=== PATIENT | male | born 1955 | race Caucasian/White ===

== ENCOUNTER 2024-05-20 09:31 | Inpatient (IN) | payer MEDICARE ==
[~2024-05-20] VITALS: Ht 177.8 cm; Wt 95.3 kg
[~2024-05-20 09:31] MED LIST: ARICEPT10 M1 PO; ASPIRIN ADULT L81 M1 PO; BISACODYL10 MG R; BRILINTA60 MG PO; DEPAKOTE250 MG PO; FLOMAX0.4 MG PO; HUMALOG TE100 UNIT/1 SC; LANTUS SOL100 UNIT/1 SC; LEVOTHYROXINE50 MC1 PO; LISINOPRIL5 MG PO; LOPRESSOR25 MG PO; LORazepam 1 MG TAB PO PRN; LORazepam 2 MG/ML VIAL IM PRN; MEMANTINE HCL5 MG PO; METFORMIN HYD1000 MG PO; MILK OF MA400 MG/53 PO; Memantine Hydrochloride 5 MG TAB PO SCH; NATURE'S BLEND F1 MG PO; NEURONTIN600 MG PO; NORVASC5 MG PO; OMEPRAZOLE MAGN20 M2 PO; Rivastigmine Tartrate 4.6 MG/24 HR PATCH T SCH; SIMVASTATIN20 MG PO; TAGAMET HB200 M1 PO; TYLENOL325 M1 PO; VITAMIN B150 MG PO; ZOLOFT50 MG PO; Ziprasidone Mesylate 20 MG VIAL IM PRN
[2024-05-20 09:45] VITALS: BP 112/77
[2024-05-20] MEDS ORDERED: Magnesium Hydroxide 30 ML UDC PO PRN (12:05)
[2024-05-20] MEDS ORDERED: MG-AL HYDROXIDE/SIMETICONE 30 ML UDC PO PRN (12:05)
[2024-05-20] MEDS ORDERED: ACETAMINOPHEN 325 MG TAB PO PRN (12:05)
[2024-05-20] MEDS ORDERED: DEXTROSE 10 % IN WATER 250 ML IV PRN (15:40)
[2024-05-20] MEDS ORDERED: INSULIN LISPRO 1 UNIT/0.01 ML SQ SCH (16:30)
[2024-05-20 20:00] VITALS: BP 122/68
[2024-05-20] MEDS ORDERED: CIMETIDINE 200 MG TAB PO SCH (21:00)
[2024-05-20] MEDS ORDERED: GABAPENTIN 600 MG TAB PO SCH (21:00)
[2024-05-20] MEDS ORDERED: Tamsulosin Hydrochloride 0.4 MG CAP PO SCH (21:00)
[2024-05-20] MEDS ORDERED: SIMVASTATIN 20 MG TAB PO SCH (21:00)
[2024-05-20] MEDS ORDERED: Mirtazapine 15 MG TAB PO SCH (21:00)
[2024-05-21 06:38] LABS: BASO # 0.1 10*3/uL (0.0-0.1); BASO % 0.7 % (0.0-1.0); EOS # 0.2 10*3/uL (0.0-0.4); EOS % 1.7 % (1.0-4.0); HEMATOCRIT 40.3 % (42.0-52.0); MEAN CELL VOLUME 99.8 fl (80.0-94.0); MEAN CORPUSCULAR HGB 33.4 pg (27.0-31.0); MEAN CORPUSCULAR HGB CONC 33.5 g/dl (33.0-37.0); MEAN PLATELET VOLUME 9.2 fl (9.6-12.3); MONO % 10.5 % (3.0-9.0); NEUT # 6.3 10*3/uL (2.3-7.9); NEUT % 66.5 % (47.0-73.0); PLATELET COUNT AUTOMATED 241 10*3/uL (130-400); RED BLOOD COUNT 4.04 10*6/uL (4.50-5.90); RED CELL DISTRI WIDTH 12.7 % (0-14.5); WHITE BLOOD COUNT 9.5 10*3/uL (4.8-10.8)
[2024-05-21 07:04] LABS: ALKALINE PHOSPHATASE 86 U/L (46-116); BUN 9 mg/dl (9-23); CHLORIDE 102 mmol/L (98-107); CHOLESTEROL 133 mg/dL (<200); LDL CHOLESTEROL 33 mg/dL (9-159); SGPT/ALT 21 U/L (5-49); TOTAL PROTEIN 6.9 gm/dL (6.0-8.0); TRIGLYCERIDES 326 mg/dl (<150)
[2024-05-21 07:10] LABS: VITAMIN D, 25-HYDROXY 22.2 ng/mL (30-100)
[2024-05-21 08:00] VITALS: BP 115/65
[2024-05-21] MEDS ORDERED: FOLIC ACID 1 MG TAB PO SCH (09:00)
[2024-05-21] MEDS ORDERED: ASPIRIN, CHEWABLE 81 MG TAB PO SCH (09:00)
[2024-05-21] MEDS ORDERED: OMEPRAZOLE 20 MG CAP PO SCH (10:00)
[2024-05-21] MEDS ORDERED: Levothyroxine Sodium 50 MCG TAB PO SCH (10:00)
[2024-05-21] MEDS ORDERED: CITALOPRAM 20 MG TAB PO SCH (10:15)
[2024-05-21 18:09] LABS: BILIRUBIN Negative (Negative); BLOOD Negative (Negative); CLARITY Clear (Clear); COLOR Dark Yellow (Yellow); GLUCOSE Negative (Negative); KETONE Trace (Negative); LEUKO ESTERASE 1+ (Negative); NITRITE Negative (Negative); PH 6.5 (4.5-8.0); SPECIFIC GRAVITY 1.025 (1.001-1.030)
[2024-05-21 18:25] LABS: MUCOUS 1+; WBC 21-30 wbc/hpf (0-5)
[2024-05-21 20:00] VITALS: BP 146/60
[2024-05-22 07:39] VITALS: BP 110/56
[2024-05-22] MEDS ORDERED: Rivastigmine Tartrate 9.5 MG/24 HR PATCH T SCH (09:00)
[2024-05-22] MEDS ORDERED: Cholecalciferol 2,000 UNIT TABLET (50 MCG) PO SCH (09:00)
[2024-05-22 20:04] VITALS: BP 103/49
[2024-05-23 08:37] VITALS: BP 132/72
[2024-05-23 20:00] VITALS: BP 119/77
[2024-05-24 08:00] VITALS: BP 120/87
[2024-05-24] MEDS ORDERED: RIVASTIGMINE 13.3 MG/24 HR TDM T SCH (09:00)
[2024-05-24 20:00] VITALS: BP 125/73
[2024-05-24] MEDS ORDERED: PHENOL/NA PHENOLATE 20 ML THROAT SPRAY T PRN (20:35)
[2024-05-25 08:04] VITALS: BP 130/78
[2024-05-25 20:00] VITALS: BP 134/68
[2024-05-26 07:50] VITALS: BP 137/65
[2024-05-26] MEDS ORDERED: BARIUM SULFATE 98% 340 GM BOT PO ONE ×2 (09:15→09:38)
[2024-05-26 20:00] VITALS: BP 152/82
[2024-05-27 08:00] VITALS: BP 149/85
[2024-05-27] MEDS ORDERED: CITALOPRAM20 MG PO (09:58)
[2024-05-27] MEDS ORDERED: RIVASTIGMINE1 EAC2 T (09:58)
== END 2024-05-27 12:08 | DRG 885 ==
LOC: 3N 09:31
PROVIDERS: ADMIT Psychiatry & Neurology Psychiatry; ATTEND Psychiatry & Neurology Psychiatry
PROC: GZHZZZZ Group Psychotherapy (ICD-10-PCS; principal; 2024-05-21)
PROC: GZ51ZZZ Individual Psychotherapy, Behavioral (ICD-10-PCS; 2024-05-21)
PROC: BD1BYZZ Fluoroscopy of Mouth/Oropharynx using Other Contrast (ICD-10-PCS; 2024-05-26)
DX: F33.2 Major depressive disorder, recurrent severe without psychotic features (principal); F02.83 Dementia in other diseases classified elsewhere, unspecified severity, with mood disturbance; G30.9 Alzheimer's disease, unspecified; F43.21 Adjustment disorder with depressed mood; F63.9 Impulse disorder, unspecified; Z66 Do not resuscitate; Z51.5 Encounter for palliative care; I25.10 Atherosclerotic heart disease of native coronary artery without angina pectoris; N40.0 Benign prostatic hyperplasia without lower urinary tract symptoms; E11.42 Type 2 diabetes mellitus with diabetic polyneuropathy; K21.9 Gastro-esophageal reflux disease without esophagitis; E78.5 Hyperlipidemia, unspecified; I10 Essential (primary) hypertension; Z95.5 Presence of coronary angioplasty implant and graft; Z79.1 Long term (current) use of non-steroidal anti-inflammatories (NSAID); Z79.82 Long term (current) use of aspirin; Z79.899 Other long term (current) drug therapy; Z79.4 Long term (current) use of insulin; Z79.84 Long term (current) use of oral hypoglycemic drugs